=== PATIENT | female | born 1950 | race American Indian/Alaskan Native ===

== ENCOUNTER 2017-01-12 16:55 | Emergency (ER) | payer MEDICARE ==
--- NOTE | 2017-01-12 20:19 | Cat Scan Report ---
FINAL REPORT EXAM: CT HEAD/BRAIN WO CON HISTORY: pain PT STATES THAT SHE WAS DIAGNOSED WITH BRAIN CANCER November. NO PRIORS. TECHNIQUE: CT of the head without contrast PRIORS: None. FINDINGS: There is a left frontal subcortical mass with peripheral calcification measuring approximately 1.2 centimeters. There is adjacent vasogenic edema within the right frontal lobe there is small calcification along adjacent hypodensity could reflect additional mass. Additionally within the right deep white matter of the centrum semiovale there is a 0.95 centimeter focus rim calcification could reflect additional mass. Small hyperdense focus approximately 0.8 centimeters left occipital lobe just adjacent to the falx and dural sinus noted again suspicious for mass. Ventricles and sulci are within normal limits. Calcifications in the basal ganglia appear physiologic no acute intra or extra-axial hemorrhage is identified IMPRESSION: Left frontal partially calcified mass. Additional suspicious areas of calcifications suspicious for mass right frontal lobe, right deep white matter and left occipital lobe Comparison with any prior studies if these could may be made available would be helpful for further evaluation No additional acute findings
[2017-01-12 23:21] VITALS: BP 139/51
--- NOTE | 2017-01-13 14:05 | ED Elopement Review ---
ED Pt Elopement review - Call Back decision Pt Call Back Decision: Pt to F/U with PMD (patient has history of recently diagnosed brain cancer. CT reveals suspicious calcified mass. Patient is to follow-up with her neurosurgeon or a facility that has neurosurgery)
== END 2017-01-13 07:09 | disposition left against medical advice (07) ==
LOC: ED 16:55
DX: R51 Headache (principal); H57.12 Ocular pain, left eye; Z53.21 Procedure and treatment not carried out due to patient leaving prior to being seen by health care provider
CPT/HCPCS: 70450

== ENCOUNTER 2017-01-29 13:57 | Outpatient (CLI) | payer MEDICARE ==
[2017-01-29 15:09] LABS: Blood Urea Nitrogen 21 mg/dL (7-17)
--- NOTE | 2017-01-30 15:46 | Magnetic Resonance Report ---
MRI BRAIN WITHOUT AND WITH CONTRAST: 01/29/17 14:00:00 CLINICAL: History of endometrial cancer and recent abnormal head CT. COMPARISON: 01/12/17 CT head TECHNIQUE: Axial diffusion, T1, FLAIR, gradient echo T2*, and coronal and axial T2 and sagittal T1 plus coronal and axial postcontrast T1 sequences on a 1.5 Nicole magnet. 14.0 cc of Multihance was injected intravenously for the contrast portion of the exam. Consent was obtained prior to the administration of contrast. FINDINGS: The ventricles and sulci are large for age. No restricted diffusion. Numerous bilateral multilobar enhancing lesions in the cerebral hemispheres, brainstem and left cerebellum. The largest mass is in the right occipital lobe and measures 2.0 x 1.47 m. There is minimal associated vasogenic edema. A 1.7 x 1.7 cm left frontal lobe mass with moderate surrounding vasogenic edema. No significant mass effect and no hemorrhage. A single 5 mm enhancing lesion of the medulla. hemorrhage, edema or extra-axial collection. Normal pituitary and optic chiasm. Intact vascular flow voids. The orbits, sinuses and soft tissues are normal. Normal calvarium and skull base. IMPRESSION: 1. Numerous metastases involving bilateral cerebral hemispheres, brainstem and left cerebellum. 2. Minimal mass effect and no hemorrhage. 3. Global cortical atrophy.
== END 2017-01-29 13:58 | disposition home or self-care (01) ==
LOC: MRI 13:57
PROVIDERS: ATTEND Radiology Radiation Oncology
DX: C79.31 Secondary malignant neoplasm of brain (principal); R60.9 Edema, unspecified; G31.89 Other specified degenerative diseases of nervous system; Z85.42 Personal history of malignant neoplasm of other parts of uterus
CPT/HCPCS: 36415; 70553; 82565; 84520; A9577